=== PATIENT | male | born 1950 | race Caucasian/White ===

== ENCOUNTER 2021-06-10 10:28 | Day surgery (SDC) | payer MEDICARE, MEDICAID ==
[2021-06-05 11:18] LABS: BASOPHILS % (AUTO) 0.5 % (0-1); EOSINOPHILS # (AUTO) 0.1 X10'3 (0-0.9); EOSINOPHILS % (AUTO) 1.2 % (0-6); HEMATOCRIT 51.7 % (42.0-52.0); HEMOGLOBIN 17.2 g/dl (14.0-17.9); LYMPHOCYTES # (AUTO) 2.2 X10'3 (1.1-4.8); LYMPHOCYTES % (AUTO) 32.9 % (21-51); MEAN CORPUSCULAR HEMOGLOBIN 31.6 PG (27.0-31.0); MEAN CORPUSCULAR HGB CONC 33.2 g/dL (33.0-36.5); MEAN CORPUSCULAR VOLUME 95.1 FL (78-98); MEAN PLATELET VOLUME 9.1 FL (7.4-10.4); MONOCYTES # (AUTO) 0.6 X10'3 (0-0.9); MONOCYTES % (AUTO) 8.9 % (2-12); NEUTROPHILS # (AUTO) 3.7 X10'3 (1.8-7.7); NEUTROPHILS % (AUTO) 56.5 % (42-75); PLATELET COUNT 131 X10'3 (140-440); RED BLOOD COUNT 5.44 X10'6 (4.70-6.10); RED CELL DISTRIBUTION WIDTH 14.1 % (11.5-14.5); WHITE BLOOD COUNT 6.6 X10'3 (4.5-11.0)
[2021-06-05 11:29] LABS: ALBUMIN 3.7 G/DL (3.4-5.0); ANION GAP 7 (8-16); APTT 33 SECONDS (22-32); BLOOD UREA NITROGEN 13 MG/DL (7-18); BUN/CREATININE RATIO 20.6 (5.4-32.0); CALCIUM 8.8 MG/DL (8.5-10.1); CHLORIDE 109 MMOL/L (99-107); CREATININE 0.63 MG/DL (0.60-1.10); GLUCOSE 96 MG/DL (70-104); POTASSIUM 4.6 MMOL/L (3.5-5.1); SODIUM 141 MMOL/L (135-145); TOTAL CARBON DIOXIDE 24.7 MMOL/L (24-32); eGFR > 90 ML/MIN
[~2021-06-10] VITALS: Ht 170.2 cm; Wt 85.0 kg
[2021-06-10] VITALS (9 sets, daily range): BP systolic 128–152; BP diastolic 78–97
[~2021-06-10 10:28] MED LIST: ASPI-1264 PO; ATOR80TA PO; CARV-49 PO; HYDR-4353 PO; LEVO100T9 PO; TAMS0.4C32 PO
[2021-06-10] MEDS ORDERED: LIDOcaine/PRILOcaine 5gm cream TP ONE (10:45)
[2021-06-10] MEDS ORDERED: diphenhydrAMINE 25mg capsule PO PRN (10:45)
[2021-06-10] MEDS ORDERED: normal saline 1,000 ML IV SCH (10:45)
[2021-06-10] MEDS ORDERED: LORazepam 0.5 MG tablet PO PRN (10:45)
[2021-06-10] MEDS ORDERED: LISI10TA27 PO (11:11)
[2021-06-10] MEDS ORDERED: NITR0.4T51 SL (11:11)
[2021-06-10] MEDS ORDERED: APIX5TAB3 PO (11:11)
[2021-06-10] MEDS ORDERED: SILD100T70 PO (11:11)
[2021-06-10] MEDS ORDERED: iohexol 350MG/ML 100ml bottle IV ONE (12:46)
[2021-06-10] MEDS ORDERED: fentaNYL/PF 50MCG/1 ML 2ML syringe ONE (12:46)
[2021-06-10] MEDS ORDERED: midazolam 1 mg/ML 2ml injection ONE (12:46)
[2021-06-10] MEDS ORDERED: LIDOcaine 1% (10mg/ml)w/preservative inj. 20ml MDV ONE (12:46)
[2021-06-10] MEDS ORDERED: iohexol 350 MG/ML 50ML vial IV ONE (13:44)
[2021-06-10] MEDS ORDERED: HYDROcodone/acetaminophen 5mg/325mg tablet PO PRN (14:30)
[2021-06-10] MEDS ORDERED: HYDROcodone/acetaminophen 10/325mg tab PO PRN (14:30)
== END 2021-06-10 17:05 | disposition home or self-care (01) ==
LOC: SSTAY O 10:28
PROVIDERS: ATTEND Internal Medicine Interventional Cardiology
DX: R07.89 Other chest pain (principal); I25.10 Atherosclerotic heart disease of native coronary artery without angina pectoris; E11.9 Type 2 diabetes mellitus without complications; I25.2 Old myocardial infarction; I08.0 Rheumatic disorders of both mitral and aortic valves; E03.9 Hypothyroidism, unspecified; I48.91 Unspecified atrial fibrillation; J44.9 Chronic obstructive pulmonary disease, unspecified; N40.0 Benign prostatic hyperplasia without lower urinary tract symptoms; I48.92 Unspecified atrial flutter; I11.9 Hypertensive heart disease without heart failure; E78.5 Hyperlipidemia, unspecified; Z79.899 Other long term (current) drug therapy; Z79.01 Long term (current) use of anticoagulants; Z95.1 Presence of aortocoronary bypass graft; Z95.2 Presence of prosthetic heart valve; Z88.0 Allergy status to penicillin; Z88.8 Allergy status to other drugs, medicaments and biological substances
CPT/HCPCS: 36415; 80048; 85025; 85610; 85730; 93005; 93455; 99152; 99153; C1760; C1769; C1894; J1644; J2250; J3010; J3490; J7030; Q0163; Q9967; A4620; A6258

== ENCOUNTER 2024-04-02 02:30 | Emergency (ER) | payer MEDICARE, MEDICAID ==
[~2024-04-02] VITALS: Ht 170.2 cm; Wt 77.2 kg
[~2024-04-02 02:30] MED LIST changes: +APIX5TAB3 PO; -ASPI-1264 PO; +ATOR-429 PO; -ATOR80TA PO; -HYDR-4353 PO; +LISI10TA27 PO; +NITR0.4T51 SL; +SILD100T70 PO; -TAMS0.4C32 PO
[2024-04-02] MEDS: glycopyrrolate 0.2mg/ml inj IV ONE (03:11)
[2024-04-02] MEDS: normal saline 1000ML IV soln IVB ONE (03:12)
[2024-04-02 03:46] LABS: BILIRUBIN,URINE NEGATIVE (Neg); CLARITY,URINE CLEAR (Clear); COLOR,URINE YELLOW (Yellow); GLUCOSE, URINE >=1000 mg/dl (Neg); KETONES,URINE NEGATIVE (Neg); LEUKOCYTE ESTERASE ,URINE NEGATIVE (Neg); NITRITES, URINE NEGATIVE (Neg); OCCULT BLOOD,URINE TRACE-INTACT (Neg); PH,URINE 5.5 (4.8-8.0); PROTEIN,URINE NEGATIVE (Neg); UROBILINOGEN,URINE 0.2 E.U/dL (0.2-1.0)
[2024-04-02 03:46] LABS: ALANINE AMINOTRANSFERASE 43 U/L (12-78); ALBUMIN 3.6 G/DL (3.4-5.0); ALBUMIN/GLOBULIN RATIO 0.8 (1.1-1.5); ALKALINE PHOSPHATASE 106 IU/L (46-116); ANION GAP 12 (8-16); ASPARTATE AMINO TRANSFERASE 38 U/L (10-37); BILIRUBIN,TOTAL 2.2 MG/DL (0.1-1.0); BLOOD UREA NITROGEN 14 MG/DL (7-18); BUN/CREATININE RATIO 13.9 (10.0-20.0); CALCIUM 8.6 MG/DL (8.5-10.1); CHLORIDE 97 MMOL/L (99-107); CREATININE 1.01 MG/DL (0.60-1.10); GLUCOSE 123 MG/DL (70-104); LIPASE 22 U/L (16-77); POTASSIUM 3.6 MMOL/L (3.5-5.1); SODIUM 131 MMOL/L (135-145); TOTAL CARBON DIOXIDE 21.8 MMOL/L (24-32); TOTAL PROTEIN 8.3 G/DL (6.4-8.2); eCRCL 60 ML/MIN; eGFR 72 ML/MIN
[2024-04-02 03:47] LABS: BASOPHILS % (AUTO) 0.3 % (0-1); EOSINOPHILS # (AUTO) 0.1 X10'3 (0-0.9); EOSINOPHILS % (AUTO) 0.5 % (0-6); HEMATOCRIT 56.1 % (42.0-52.0); LYMPHOCYTES # (AUTO) 0.7 X10'3 (1.1-4.8); LYMPHOCYTES % (AUTO) 7.3 % (21-51); MEAN CORPUSCULAR HEMOGLOBIN 32.4 PG (27.0-31.0); MEAN CORPUSCULAR HGB CONC 33.8 g/dL (33.0-36.5); MEAN CORPUSCULAR VOLUME 95.6 FL (78-98); MEAN PLATELET VOLUME 8.5 FL (7.4-10.4); MONOCYTES # (AUTO) 0.6 X10'3 (0-0.9); MONOCYTES % (AUTO) 5.9 % (2-12); NEUTROPHILS # (AUTO) 8.7 X10'3 (1.8-7.7); PLATELET COUNT 149 X10'3 (140-440); RED BLOOD COUNT 5.87 X10'6 (4.70-6.10); RED CELL DISTRIBUTION WIDTH 13.9 % (11.5-14.5); WHITE BLOOD COUNT 10.1 X10'3 (4.5-11.0)
[2024-04-02 03:58] LABS: UA COLLECTION TYPE NON-SPECIFIED
[2024-04-02 03:59] LABS: BACTERIA,URINE FEW /HPF (Neg); RBC,URINE 0-2 /HPF (0-2); WBC,URINE 0-4 /HPF (0-4)
[2024-04-02 04:00] LABS: SQUAMOUS EPITHELIAL CELL,UR NONE SEEN /LPF (FEW)
[2024-04-02] MEDS ORDERED: ONDA-243 PO (05:06)
[2024-04-02] MEDS ORDERED: DICY10CA88 PO (05:06)
[2024-04-02 05:24] VITALS: BP 91/48; PULSE 91; RESP 16; TEMP 98.8; O2SAT 97
== END 2024-04-02 05:34 | disposition home or self-care (01) ==
LOC: ER 02:31
DX: R10.32 Left lower quadrant pain (principal); I25.10 Atherosclerotic heart disease of native coronary artery without angina pectoris; E78.00 Pure hypercholesterolemia, unspecified; I10 Essential (primary) hypertension; E03.9 Hypothyroidism, unspecified; Z88.0 Allergy status to penicillin; Z95.1 Presence of aortocoronary bypass graft; Z98.890 Other specified postprocedural states
CPT/HCPCS: 36415; 80053; 81001; 83690; 84145; 85025; 96361; 96374; 99283; J3490; J7030